=== PATIENT | male | born 1945 | race Caucasian/White ===

== ENCOUNTER 2020-09-15 02:17 | Inpatient (IN) | payer OTHER ==
[~2020-09-15] VITALS: Ht 182.9 cm; Wt 81.6 kg
[2020-09-15 03:33] LABS: HEMOGLOBIN 14.6 gm/dl (14.0-17.5); RED BLOOD COUNT 5.18 M/UL (4.20-5.50); WHITE BLOOD COUNT 10.5 K/UL (4.5-11.0)
[2020-09-16 04:17] LABS: HEMOGLOBIN 13.4 gm/dl (14.0-17.5); RED BLOOD COUNT 4.73 M/UL (4.20-5.50); WHITE BLOOD COUNT 11.1 K/UL (4.5-11.0)
[2020-09-17 03:02] LABS: HEMOGLOBIN 12.9 gm/dl (14.0-17.5); RED BLOOD COUNT 4.64 M/UL (4.20-5.50); WHITE BLOOD COUNT 9.6 K/UL (4.5-11.0)
[2020-09-18 02:48] LABS: BUN/CREATININE RATIO 26 (0-10)
[2020-09-18] MEDS ORDERED: IPRAT-ALBUT 0.5-3 ML NEB (10:48)
[2020-09-18] MEDS ORDERED: BUDESONIDE0.5 MG/2 M INH (10:48)
[2020-09-18] MEDS ORDERED: ATORVASTATIN CA20 MG PO (10:48)
[2020-09-18] MEDS ORDERED: FUROSEMIDE40 MG PO (10:48)
[2020-09-18] MEDS ORDERED: LOPRESSOR 25 MG25 MG PO (10:48)
[2020-09-18] MEDS ORDERED: ASPIRIN EC81 MG PO (10:48)
[2020-09-18] MEDS ORDERED: DECADRON6 MG PO (10:50)
--- NOTE | 2020-09-18 11:55 | NUR ---
PATIENT OXYGEN SATURATION IS PRESENTLY 96% ON ROOM AIR
== END 2020-09-18 16:51 | disposition home or self-care (01) | DRG 177 ==
LOC: ER1 02:17 → PROG CARE 10:17 → CDU 10:17 → PROG CARE 13:26
PROVIDERS: Family Medicine; ADMIT Internal Medicine
PROC: XW033E5 Introduction of Remdesivir Anti-infective into Peripheral Vein, Percutaneous Approach, New Technology Group 5 (ICD-10-PCS; 2020-09-15)
PROC: 8E0ZXY6 Isolation (ICD-10-PCS; 2020-09-15)
PROC: B24BZZZ Ultrasonography of Heart with Aorta (ICD-10-PCS; principal; 2020-09-16)
DX: U07.1 COVID-19 (principal); J96.01 Acute respiratory failure with hypoxia; I50.23 Acute on chronic systolic (congestive) heart failure; I21.4 Non-ST elevation (NSTEMI) myocardial infarction; J44.0 Chronic obstructive pulmonary disease with (acute) lower respiratory infection; I24.9 Acute ischemic heart disease, unspecified; J20.9 Acute bronchitis, unspecified; R79.1 Abnormal coagulation profile; R73.9 Hyperglycemia, unspecified; I11.0 Hypertensive heart disease with heart failure; N28.1 Cyst of kidney, acquired; I25.119 Atherosclerotic heart disease of native coronary artery with unspecified angina pectoris; E78.5 Hyperlipidemia, unspecified; F41.9 Anxiety disorder, unspecified; Z91.14 Patient's other noncompliance with medication regimen; Z95.1 Presence of aortocoronary bypass graft; Z90.49 Acquired absence of other specified parts of digestive tract; Z87.891 Personal history of nicotine dependence; Z84.89 Family history of other specified conditions
CPT/HCPCS: ECHO; 0240U; 36415; 71045; 80048; 80053; 80061; 82550; 82553; 83036; 83735; 83874; 83880; 84484; 85025; 85027; 85379; 85610; 85730; 87040; 93005; 93306; 94640; 94664; 94760; 96374; 96375; 99285; J1100; J1644; J1650; J1940; J7030; Q9967

== ENCOUNTER 2020-10-02 04:14 | Inpatient (IN) | payer OTHER ==
[~2020-10-02] VITALS: Ht 182.9 cm; Wt 79.0 kg
[~2020-10-02 04:14] MED LIST: ASPIRIN EC81 MG PO; ATORVASTATIN CA20 MG PO; BUDESONIDE0.5 MG/2 M INH; DECADRON6 MG PO; FUROSEMIDE40 MG PO; IPRAT-ALBUT 0.5-3 ML NEB; LOPRESSOR 25 MG25 MG PO
[2020-10-02 04:49] LABS: HEMOGLOBIN 13.3 gm/dl (14.0-17.5); RED BLOOD COUNT 4.67 M/UL (4.20-5.50); WHITE BLOOD COUNT 17.1 K/UL (4.5-11.0)
[2020-10-02 05:22] LABS: BUN/CREATININE RATIO 11 (0-10)
[2020-10-03 01:31] LABS: HEMOGLOBIN 9.4 gm/dl (14.0-17.5)
--- NOTE | 2020-10-03 06:23 | NUR ---
CRITICAL CARDIAC LABS NOTED TO BE TREDNING DOWN WILL MONITOR
[2020-10-03 07:01] LABS: HEMOGLOBIN 10.5 gm/dl (14.0-17.5)
[2020-10-03 09:38] LABS: WHITE BLOOD COUNT 13.3 K/UL (4.5-11.0)
[2020-10-03 09:42] LABS: RED BLOOD COUNT 3.75 M/UL (4.20-5.50)
[2020-10-03 12:10] LABS: HEMOGLOBIN 11.4 gm/dl (14.0-17.5); WHITE BLOOD COUNT 11.9 K/UL (4.5-11.0)
[2020-10-03 12:43] LABS: BORDETELLA PARAPERTUSSIS Not Detected (Not Detectd); BORDETELLA PERTUSSIS Not Detected (Not Detectd); CHLAMYDIA PNEUMONIAE Not Detected (Not Detectd); CORONAVIRUS HKU1 Not Detected (Not Detectd); CORONAVIRUS NL63 Not Detected (Not Detectd); CORONAVIRUS OC43 Not Detected (Not Detectd); CORONOAVIRUS 229E Not Detected (Not Detectd); HUMAN METAPNEUMOVIRUS Not Detected (Not Detectd); HUMAN RHINOVIRUS/ENTEROVIRUS Not Detected (Not Detectd); INFLUENZA A Not Detected (Not Detectd); INFLUENZA B Not Detected (Not Detectd); MYCOPLASMA PNEUMONIAE Not Detected (Not Detectd); PARAINFLUENZA VIRUS 1 Not Detected (Not Detectd); PARAINFLUENZA VIRUS 2 Not Detected (Not Detectd); PARAINFLUENZA VIRUS 3 Not Detected (Not Detectd); PARAINFLUENZA VIRUS 4 Not Detected (Not Detectd); RESPIRATORY SYNCYTIAL VIRUS Not Detected (Not Detectd)
[2020-10-03 14:08] LABS: SARS-CoV-2 NOT DETECTED (Not Detectd)
[2020-10-04 04:19] LABS: HEMOGLOBIN 10.1 gm/dl (14.0-17.5)
[2020-10-04 04:42] LABS: RED BLOOD COUNT 3.54 M/UL (4.20-5.50)
[2020-10-05 05:24] LABS: HEMOGLOBIN 10.1 gm/dl (14.0-17.5); RED BLOOD COUNT 3.55 M/UL (4.20-5.50); WHITE BLOOD COUNT 7.6 K/UL (4.5-11.0)
[2020-10-05 05:43] LABS: BUN/CREATININE RATIO 8 (0-10)
[2020-10-06 05:33] LABS: HEMOGLOBIN 10.5 gm/dl (14.0-17.5); RED BLOOD COUNT 3.67 M/UL (4.20-5.50)
[2020-10-06 05:53] LABS: BUN/CREATININE RATIO 8 (0-10)
[2020-10-06 13:09] LABS: ORGANISM ID Not indicated. (.); SPECIMEN SOURCE Urine (.); STREPTOCOCCUS PNEUMONIAE AG Negative (Negative)
[2020-10-07 03:38] LABS: HEMOGLOBIN 10.7 gm/dl (14.0-17.5); RED BLOOD COUNT 3.81 M/UL (4.20-5.50); WHITE BLOOD COUNT 7.7 K/UL (4.5-11.0)
[2020-10-07 04:02] LABS: BUN/CREATININE RATIO 8 (0-10)
[2020-10-07] MEDS ORDERED: LASIX40 MG PO (12:52)
[2020-10-07] MEDS ORDERED: CLOPIDOGREL75 MG PO (12:52)
[2020-10-07] MEDS ORDERED: COZAAR 50MG TAB50 MG PO (12:52)
[2020-10-07] MEDS ORDERED: AMOX TR-K CLV1 EAC4 PO (12:55)
== END 2020-10-07 14:23 | disposition home or self-care (01) | DRG 246 ==
LOC: ER1 04:14 → PROG CARE 06:07 → CCU 06:07 → CDU 06:07 → CCU 15:18 → PROG CARE 10-06 16:45
PROVIDERS: Family Medicine; Internal Medicine; Internal Medicine Cardiovascular Disease; Internal Medicine Gastroenterology; ADMIT Internal Medicine
PROC: 027135Z Dilation of Coronary Artery, Two Arteries with Two Drug-eluting Intraluminal Devices, Percutaneous Approach (ICD-10-PCS; principal; 2020-10-02)
PROC: B213YZZ Fluoroscopy of Multiple Coronary Artery Bypass Grafts using Other Contrast (ICD-10-PCS; 2020-10-02)
PROC: B2111ZZ Fluoroscopy of Multiple Coronary Arteries using Low Osmolar Contrast (ICD-10-PCS; 2020-10-02)
PROC: 02HV33Z Insertion of Infusion Device into Superior Vena Cava, Percutaneous Approach (ICD-10-PCS; 2020-10-03)
PROC: B548ZZA Ultrasonography of Superior Vena Cava, Guidance (ICD-10-PCS; 2020-10-03)
PROC: 0DJ08ZZ Inspection of Upper Intestinal Tract, Via Natural or Artificial Opening Endoscopic (ICD-10-PCS; 2020-10-03)
PROC: 0W3P8ZZ Control Bleeding in Gastrointestinal Tract, Via Natural or Artificial Opening Endoscopic (ICD-10-PCS; 2020-10-03)
PROC: B24BZZ4 Ultrasonography of Heart with Aorta, Transesophageal (ICD-10-PCS; 2020-10-05)
DX: I21.4 Non-ST elevation (NSTEMI) myocardial infarction (principal); A41.9 Sepsis, unspecified organism; J18.9 Pneumonia, unspecified organism; K55.21 Angiodysplasia of colon with hemorrhage; J96.01 Acute respiratory failure with hypoxia; I50.23 Acute on chronic systolic (congestive) heart failure; R57.0 Cardiogenic shock; G93.40 Encephalopathy, unspecified; D62 Acute posthemorrhagic anemia; E87.1 Hypo-osmolality and hyponatremia; J44.0 Chronic obstructive pulmonary disease with (acute) lower respiratory infection; Z66 Do not resuscitate; Z20.822 Contact with and (suspected) exposure to COVID-19; K64.8 Other hemorrhoids; E87.5 Hyperkalemia; I25.5 Ischemic cardiomyopathy; K22.4 Dyskinesia of esophagus; B95.62 Methicillin resistant Staphylococcus aureus infection as the cause of diseases classified elsewhere; T44.7X5A Adverse effect of beta-adrenoreceptor antagonists, initial encounter; E78.5 Hyperlipidemia, unspecified; F17.210 Nicotine dependence, cigarettes, uncomplicated; I11.0 Hypertensive heart disease with heart failure; F41.9 Anxiety disorder, unspecified; I35.0 Nonrheumatic aortic (valve) stenosis; I24.9 Acute ischemic heart disease, unspecified; I25.10 Atherosclerotic heart disease of native coronary artery without angina pectoris; Z95.1 Presence of aortocoronary bypass graft; Z87.01 Personal history of pneumonia (recurrent); Z82.49 Family history of ischemic heart disease and other diseases of the circulatory system; Z79.82 Long term (current) use of aspirin; Z90.49 Acquired absence of other specified parts of digestive tract; Z91.14 Patient's other noncompliance with medication regimen; I25.2 Old myocardial infarction; Z86.16 Personal history of COVID-19; K64.1 Second degree hemorrhoids
CPT/HCPCS: 36415; 36430; 71045; 80048; 80053; 80061; 80202; 82550; 82553; 83605; 83874; 83880; 84132; 84484; 85014; 85018; 85025; 85027; 85347; 85610; 85730; 86140; 86738; 86850; 86900; 86901; 86920; 87040; 87081; 87278; 87633; 87899; 92978; 93005; 93308; 94640; 94760; 96374; 96375; 97161; 99152; 99153; 99285; A6212; C1725; C1753; C1769; C1874; C1887; C1894; C9113; C9600; J0171; J0696; J1205; J1644; J1940; J2060; J2250; J2370; J2405; J2543; J3010; J3246; J3370; J7030; J7040; J7050; J7070; P9016; P9035; Q9965; Q9967; U0002